=== PATIENT | female | born 1960 | race Hispanic/Latino ===

== ENCOUNTER 2017-02-16 17:44 | Emergency (ER) | payer MEDICAID ==
[2017-02-16 18:05] VITALS: O2SAT 98
--- NOTE | 2017-02-16 19:41 | C.PDOC ---
History Of Present Illness 56 year old patient presents to the ED complaining of bilateral feet pain and redness for the past 4 months. 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 Walking exacerbates the pain. She has not seen her PMD for her complaint. Patient denies fever, numbness or weakness. Time Seen by Provider: 02/16/17 19:18 Chief Complaint (Nursing): Lower Extremity Problem/Injury History Per: Patient History/Exam Limitations: no limitations Onset/Duration Of Symptoms: Other (4 months) Current Symptoms Are (Timing): Still Present Severity: Mild Pain Scale Rating Of: 3 Recent travel outside of the [place]: No Past Medical History Reviewed: Historical Data, Nursing Documentation, Vital Signs Vital Signs: Last Vital Signs Temp 97.9 F 02/16/17 20:04 Pulse 76 02/16/17 20:04 Resp 16 02/16/17 20:04 BP 125/78 02/16/17 20:04 Pulse Ox 98 02/16/17 20:04 Family History: States: Unknown Family Hx - Social History Hx Alcohol Use: No Hx Substance Use: No - Immunization History Hx Tetanus Toxoid Vaccination: No Hx Influenza Vaccination: No Hx Pneumococcal Vaccination: No Review Of Systems Except As Marked, All Systems Reviewed And Found Negative. Constitutional: Negative for: Fever Musculoskeletal: Positive for: Foot Pain (bilateral) Skin: Negative for: Rash, Bruising Neurological: Negative for: Weakness, Numbness Physical Exam - Physical Exam Appears: Non-toxic, No Acute Distress Skin: Warm, Dry Eye(s): bilateral: Normal Inspection, PERRL Extremity: Normal ROM, No Pedal Edema, No Calf Tenderness, Capillary Refill (<2 seconds), No Deformity, No Swelling, Other (bilateral feet: normal pedal pulses ; normal color; normal strength, motor, and sensation, no erythema or warmth) Extremity: Bilateral: Atraumatic, Normal Color And Temperature Pulses: Left Dorsalis Pedis: Normal, Right Dorsalis Pedis: Normal Neurological/Psych: Oriented x3, Normal Motor, Normal Sensation Gait: Steady ED Course And Treatment O2 Sat by Pulse Oximetry: 98 (room air) Pulse Ox Interpretation: Normal Progress Note: Pt with normal foot exam- advised follow up in clinic or with PMD Disposition Counseled Patient/Family Regarding: Diagnosis, Need For Followup - Disposition Referrals: Andrews العراقي MD [Non-Staff] - Disposition: HOME/ ROUTINE Disposition Time: 19:39 Condition: STABLE Additional Instructions: Please follow up with PMD Take meds as directed Return to ER if worse Instructions: Peripheral Neuropathy (ED) - Clinical Impression Clinical Impression: Neuropathy - PA / DAY TREATMENT CLINICIAN/ART THERAPIST / Resident Statement MD/DO has reviewed & agrees with the documentation as recorded. - Scribe Statement The provider has reviewed the documentation as recorded by the Scribe Milagros Espitia All medical record entries made by the Scribe were at my direction and personally dictated by me. I have reviewed the chart and agree that the record accurately reflects my personal performance of the history, physical exam, medical decision making, and the department course for this patient. I have also personally directed, reviewed, and agree with the discharge instructions and disposition.
[2017-02-16 20:04] VITALS: BP 125/78; PULSE 76; RESP 16; TEMP 97.9
== END 2017-02-16 20:25 | disposition home or self-care (01) ==
LOC: C.ER 17:44
DX: G62.9 Polyneuropathy, unspecified (principal)

== ENCOUNTER 2017-06-23 10:49 | Emergency (ER) | payer MEDICAID ==
--- NOTE | 2017-06-23 11:35 | C.PDOC ---
History Of Present Illness 56 y/o female c/o 'months' of intermittent cramping bilateral foot pain that radiates upwards to her calves and thighs, making it difficult and painful for her to walk. pt reports episodes becoming more frequent. pt also c/o months of diffuse itching with no rash. pt on 'allergy relief 180 mg" for last week and as well as bactrim for ent problem, but reports symptoms of itching started long before then. pt not on ocp or statin medications, denies cp and sob. denies dark urine. denies any rash, swelling to lips, face or tongue, no difficulty breathing. Time Seen by Provider: 06/23/17 11:10 Chief Complaint (Nursing): Allergic Reaction History Per: Patient History/Exam Limitations: no limitations Onset/Duration Of Symptoms: Days (months) Current Symptoms Are (Timing): Still Present Possible Cause: Unknown Associated Symptoms: Itching. denies: Skin Rash, Swelling, Dyspnea Home/EMS Treatment: None Severity: Moderate Past Medical History Reviewed: Historical Data, Nursing Documentation, Vital Signs Vital Signs: Last Vital Signs Temp 98.9 F 06/23/17 11:02 Pulse 76 06/23/17 11:02 Resp 20 06/23/17 11:02 BP 126/78 06/23/17 11:02 Pulse Ox 99 06/23/17 13:08 - Medical History PMH: No Chronic Diseases Family History: States: Unknown Family Hx - Social History Hx Tobacco Use: No Hx Alcohol Use: No Hx Substance Use: No - Immunization History Hx Tetanus Toxoid Vaccination: No Hx Influenza Vaccination: No Hx Pneumococcal Vaccination: No Review Of Systems Constitutional: Negative for: Fever, Chills Cardiovascular: Negative for: Chest Pain, Palpitations Respiratory: Negative for: Cough, Shortness of Breath Skin: Negative for: Rash Neurological: Negative for: Weakness, Numbness Physical Exam - Physical Exam Appears: Non-toxic, No Acute Distress Skin: Normal Color, Warm, Dry, No Rash Head: Atraumatic, Normacephalic Tongue: Normal Appearing, No Swelling Lips: Normal Appearing, No Swelling Throat: Normal, No Erythema Neck: Normal ROM, Supple Chest: Symmetrical, No Deformity, No Tenderness Cardiovascular: Rhythm Regular, No Murmur Respiratory: Normal Breath Sounds, No Rales, No Rhonchi, No Wheezing Gastrointestinal/Abdominal: Soft, No Tenderness Extremity: Normal ROM, No Pedal Edema, No Calf Tenderness, No Swelling, Other ( from bilateral le, no erythema, swelling or tenderness, no warmth, neg homans. no edema. ) Extremity: Bilateral: Atraumatic Pulses: Left Dorsalis Pedis: Normal, Right Dorsalis Pedis: Normal Neurological/Psych: Oriented x3, Normal Speech, Normal Cognition, Normal Motor, Normal Sensation ED Course And Treatment - Laboratory Results Result Diagrams: 06/23/17 12:05 06/23/17 12:05 O2 Sat by Pulse Oximetry: 99 Medical Decision Making Medical Decision Making: pt in no apparent distress, lying on stretcher comfortably, not scratching, eating sandwich. labs wnl, will d/c pt with claritin and recommend f/u with insurance risk analyst and pmd. Disposition Counseled Patient/Family Regarding: Studies Performed, Diagnosis, Need For Followup, Rx Given - Disposition Referrals: Podiatry Clinic [Outside] Jose Antonio Childers, FAM, NUCLEAR RADIATION ENGINEER [Advanced Practice Nurse] - Disposition: HOME/ ROUTINE Disposition Time: 13:38 Condition: STABLE Additional Instructions: Please follow up with your PMD and with the podiatry clinic. Call for appointments. Take Tylenol or Motrin for pain, Claritin for itching. Prescriptions: Loratadine 10 mg PO DAILY #20 tablet Forms: [facility] ([place]se), General Discharge Instructions - Clinical Impression Clinical Impression: Foot pain, bilateral, Chronic pruritus
[2017-06-23 12:12] LABS: BASO # 0.1 K/uL (0.0-0.2); EOS % 0.6 % (0.0-4.0); HEMATOCRIT 38.5 % (34.0-47.0); LYMPH # 0.8 K/uL (1.0-4.3); LYMPH % 13.3 % (20.0-40.0); MEAN CORPUSCULAR HEMOGLOBIN 31.4 pg (27.0-31.0); MEAN CORPUSCULAR HGB CONC 34.5 g/dL (33.0-37.0); MEAN PLATELET VOLUME 7.6 fL (7.2-11.7); MONO # 0.6 K/uL (0.0-0.8); MONO % 9.6 % (0.0-10.0); NRBC % 0.1 % (0.0-2.0); RED CELL DISTRIBUTION WIDTH 11.7 % (11.5-14.5)
[2017-06-23 12:28] LABS: CHLORIDE 96 mmol/L (98-107); SODIUM 133 mmol/L (132-148)
[2017-06-23 12:29] LABS: POTASSIUM 3.7 mmol/L (3.6-5.2)
[2017-06-23 12:31] LABS: ALB/GLOB RATIO 1.2 (1.0-2.1); ALKALINE PHOSPHATASE 89 U/L (38-126); ALT/SGPT 33 U/L (9-52); AST/SGOT 17 U/L (14-36); BILIRUBIN,TOTAL 0.4 mg/dL (0.2-1.3); BLOOD UREA NITROGEN 10 mg/dL (7-17); CARBON DIOXIDE 23 mmol/L (22-30); GFR AFRICAN-AMERICAN > 60; GLUCOSE,RANDOM 104 mg/dL (65-105); TOTAL PROTEIN 8.5 g/dL (6.3-8.3)
[2017-06-23 12:32] LABS: CALCIUM 9.2 mg/dl (8.6-10.4)
[2017-06-23 13:45] VITALS: BP 119/62; PULSE 72; RESP 18; TEMP 98.3
[2017-06-24 18:21] VITALS: O2SAT 99
== END 2017-06-23 13:48 | disposition home or self-care (01) ==
LOC: C.ER 10:49
DX: M79.672 Pain in left foot (principal); M79.671 Pain in right foot; L29.9 Pruritus, unspecified

== ENCOUNTER 2017-09-26 14:09 | Emergency (ER) | payer MEDICAID ==
[2017-09-26 14:46] VITALS: PULSE 100; RESP 18; O2SAT 99
[2017-09-26] MEDS ORDERED: DEXTROMETHORPHAN PO STA (15:30)
[2017-09-26] MEDS ORDERED: GUAIFENESIN PO STA (15:30)
[2017-09-26] MEDS ORDERED: PHENYLEPHRINE PO STA (15:30)
[2017-09-26] MEDS ORDERED: guaiFENesin DM 100 mg-10 mg/5 ml UD ONE (16:09)
[2017-09-26] MEDS ORDERED: Albuterol 0.083% Inhal Sol (2.5 mg/3 mL) UD INH STA (16:28)
[2017-09-26] MEDS ORDERED: Albuterol 0.083% Inhal Sol (2.5 mg/3 mL) UD ONE (16:42)
--- NOTE | 2017-09-26 16:45 | C.PDOC ---
History Of Present Illness 57 year old female presents to the ED c/o a dry cough, tactile fever, throat pain for the past 3 days. Patient sates she has not taken any medications to help with the pain. Patient denies recent travel, sick contacts, tobacco use. Time Seen by Provider: 09/26/17 15:29 Chief Complaint (Nursing): Cough, Cold, Congestion History Per: Patient History/Exam Limitations: no limitations Onset/Duration Of Symptoms: Days Current Symptoms Are (Timing): Still Present Location Of Pain: Throat Sick Contacts (Context): None Associated Symptoms: Fever, Cough Ear Symptoms: Bilateral: None Recent travel outside of the [place]: No Additional History Per: Patient Past Medical History Reviewed: Historical Data, Nursing Documentation, Vital Signs Vital Signs: Last Vital Signs Temp 100 F H 09/26/17 17:03 Pulse 100 H 09/26/17 17:03 Resp 18 09/26/17 17:03 BP 113/67 09/26/17 17:03 Pulse Ox 99 09/26/17 17:21 - Medical History PMH: No Chronic Diseases Surgical History: No Surg Hx Family History: States: Unknown Family Hx - Social History Hx Tobacco Use: No Hx Alcohol Use: No Hx Substance Use: No - Immunization History Hx Tetanus Toxoid Vaccination: No Hx Influenza Vaccination: No Hx Pneumococcal Vaccination: No Review Of Systems Constitutional: Positive for: Fever. Negative for: Chills ENT: Positive for: Throat Pain Cardiovascular: Negative for: Chest Pain, Palpitations Respiratory: Positive for: Cough. Negative for: Shortness of Breath Gastrointestinal: Negative for: Nausea, Vomiting, Abdominal Pain Genitourinary: Negative for: Dysuria, Hematuria Musculoskeletal: Negative for: Back Pain Skin: Negative for: Rash Neurological: Negative for: Headache Physical Exam - Physical Exam Appears: Non-toxic, No Acute Distress Skin: Normal Color, Warm, Dry Head: Atraumatic, Normacephalic Eye(s): bilateral: Normal Inspection, PERRL, EOMI Ear(s): Bilateral: Normal Nose: No Discharge, No Deformity Oral Mucosa: Moist Throat: Normal, No Erythema, No Exudate Chest: Symmetrical Cardiovascular: Rhythm Regular, No Murmur Respiratory: Normal Breath Sounds, No Rales, No Rhonchi, No Wheezing Extremity: Normal ROM, No Calf Tenderness, No Deformity, No Swelling Neurological/Psych: Oriented x3, Normal Speech, Normal Cognition Gait: Steady ED Course And Treatment O2 Sat by Pulse Oximetry: 99 (On RA) Pulse Ox Interpretation: Normal - Radiology CXR: Viewed By Me, Read By Radiologist CXR Interpretation: Yes: Other (Mild diffuse increased interstitial lung markings. Blunted bilateral costophrenic angles may represent trace effusions and or pleural thickening.). No: Infiltrates Medical Decision Making Medical Decision Making: Impression : bronchitis Plan: * CXR * Albuterol 3 ml INH Patient will be d/c home with a diagnosis of bronchitis, patient was instructed to follow up with PMD in 1-2 days for further evaluation. Disposition Counseled Patient/Family Regarding: Studies Performed, Diagnosis, Need For Followup, Rx Given - Disposition Referrals: [facility] [Outside] Disposition: HOME/ ROUTINE Disposition Time: 17:15 Condition: STABLE Additional Instructions: follow up with doctor in 2 days call to make an appointment take medication as needed for pain return to ER if symptoms worsens or progress Prescriptions: Albuterol HFA [Ventolin HFA 90 mcg/actuation (8 g)] 2 puff IH [id number] #1 puff Albuterol 0.083% [Albuterol Sulfate 3 Ml] 3 ml IH Q6 PRN #50 neb PRN Reason: Cough And Congestion Azithromycin [Zithromax] 250 mg PO DAILY #4 tab Benzonatate [Tessalon Perles] 100 mg PO TID PRN #15 sgl PRN Reason: Cough And Congestion Instructions: Acute Bronchitis (ED) Forms: [facility] (Danish), General Discharge Instructions - Clinical Impression Clinical Impression: Bronchitis - Scribe Statement The provider has reviewed the documentation as recorded by the Scribe Hamzah Goldman All medical record entries made by the Scribe were at my direction and personally dictated by me. I have reviewed the chart and agree that the record accurately reflects my personal performance of the history, physical exam, medical decision making, and the department course for this patient. I have also personally directed, reviewed, and agree with the discharge instructions and disposition.
[2017-09-26 17:05] VITALS: BP 113/67; TEMP 100
--- NOTE | 2017-09-26 17:18 | RAD ---
Chest x-ray two views History: Cough. Comparison: None available. Findings Mild diffuse increased interstitial lung markings. Blunted bilateral costophrenic angles may represent trace effusions and or pleural thickening. Heart size within normal limits. Degenerative changes in the spine and shoulders. Impression: Mild diffuse increased interstitial lung markings. Blunted bilateral costophrenic angles may represent trace effusions and or pleural thickening.
== END 2017-09-26 17:23 | disposition home or self-care (01) ==
LOC: C.ER 14:09
DX: J40 Bronchitis, not specified as acute or chronic (principal)

== ENCOUNTER 2018-01-03 11:27 | Emergency (ER) | payer MEDICAID ==
[2018-01-03 12:14] VITALS: BP 136/78; PULSE 87; RESP 14; TEMP 98.8; O2SAT 99
[2018-01-03] MEDS ORDERED: guaiFENesin 100 mg/5 ml Syrup UD PO STA (12:49)
--- NOTE | 2018-01-03 12:59 | C.PDOC ---
History Of Present Illness 57 y/o female presents to ED with c/o constant cough "for days" associated with headache and ear pain. Patient reports sore throat and chest pain when coughing , states she takes Xantac daily. Patient denies recent travel, fever, chills, nausea, vomiting or any other complaints at this time. Time Seen by Provider: 01/03/18 12:35 Chief Complaint (Nursing): Cough, Cold, Congestion History Per: Patient History/Exam Limitations: no limitations Onset/Duration Of Symptoms: Days Current Symptoms Are (Timing): Still Present Associated Symptoms: Sore Throat, Cough Past Medical History Reviewed: Historical Data, Nursing Documentation, Vital Signs Vital Signs: Last Vital Signs Temp 98.8 F 01/03/18 12:10 Pulse 87 01/03/18 12:10 Resp 14 01/03/18 12:10 BP 136/78 01/03/18 12:10 Pulse Ox 99 01/03/18 13:15 - Medical History PMH: No Chronic Diseases Surgical History: No Surg Hx Family History: States: No Known Family Hx - Social History Hx Tobacco Use: No Hx Alcohol Use: No Hx Substance Use: No - Immunization History Hx Tetanus Toxoid Vaccination: No Hx Influenza Vaccination: No Hx Pneumococcal Vaccination: No Review Of Systems Constitutional: Negative for: Fever, Chills ENT: Positive for: Ear Pain Cardiovascular: Positive for: Chest Pain Respiratory: Positive for: Cough Gastrointestinal: Negative for: Nausea, Vomiting Skin: Negative for: Rash Neurological: Positive for: Headache Physical Exam - Physical Exam Appears: Non-toxic, No Acute Distress Skin: Warm, Dry, No Rash Head: Atraumatic, Normacephalic Eye(s): bilateral: Normal Inspection Ear(s): Bilateral: Normal Oral Mucosa: Moist Throat: Normal, No Erythema, No Exudate Neck: Normal ROM, Supple Cardiovascular: Rhythm Regular Respiratory: Normal Breath Sounds, No Rales, No Rhonchi, No Wheezing Gastrointestinal/Abdominal: Soft, No Tenderness, No Guarding, No Rebound Neurological/Psych: Oriented x3, Normal Speech, Normal Cognition ED Course And Treatment O2 Sat by Pulse Oximetry: 99 (RA) Pulse Ox Interpretation: Normal Disposition Counseled Patient/Family Regarding: Diagnosis, Need For Followup, Rx Given - Disposition Referrals: Jose Antonio Childers, FAM, FABRIC CUTTER [Advanced Practice Nurse] - Disposition: HOME/ ROUTINE Disposition Time: 13:36 Condition: STABLE Additional Instructions: Follow up with your doctor. Prescriptions: Guanfacine HCl [Guanfacine HCl ER] 2 mg PO DAILY #6 tab.er.24h Loratadine [Claritin] 10 mg PO DAILY #6 tab Instructions: Cough in Adults Forms: [facility] (Burkinan), General Discharge Instructions, Work Excuse - POA Present On Arrival: None - Clinical Impression Clinical Impression: Cough, Seasonal allergies - Scribe Statement The provider has reviewed the documentation as recorded by the Ahsan Benítez All medical record entries made by the Ahsan were at my direction and personally dictated by me. I have reviewed the chart and agree that the record accurately reflects my personal performance of the history, physical exam, medical decision making, and the department course for this patient. I have also personally directed, reviewed, and agree with the discharge instructions and disposition.
[2018-01-03] MEDS ORDERED: guaiFENesin 200 mg/10 ml Syrup UD ONE (13:19)
== END 2018-01-03 13:52 | disposition home or self-care (01) ==
LOC: C.ER 11:27
DX: J30.2 Other seasonal allergic rhinitis (principal); R05 Cough